=== PATIENT | female | born 1965 ===

== ENCOUNTER 2017-12-03 09:45 | Outpatient (RCR) | payer BC, SELFPAY ==
--- NOTE | 2017-11-10 15:53 | PT.OIE ---
Current Diagnoses Bilateral primary osteoarthritis of hip (11/09/17) Pain in right hip (11/09/17) Pain in left hip (11/09/17) Muscle weakness (generalized) (11/09/17) Trochanteric bursitis, right hip (11/09/17) Trochanteric bursitis, left hip (11/09/17) Other symptoms and signs involving the musculoskeletal system (11/09/17) Past Medical History (Last Updated 11/10/17 @ 15:45 by Krystal Cobb, PT) Melanoma (Acute) Provider Visit Care Team Role Provider Type Sandra Avila MD Family Provider Non-Staff Primary Care Provider Specialty: Medical Address: [address] [place] [address], [place], [address]: [address] PA-C Attending Provider Non-Staff Specialty: Medical Address: [address] [place] [address], [phone] Email: Physical Therapy Initial Evaluation PT-OP-A Visit Information Start: 11/09/17 13:29 Freq: Status: Active Protocol: Document 11/09/17 13:33 LRN (Rec: 11/09/17 13:52 LRN [id number]) Out-Patient Physical Therapy Visit Information Visit Information Visit Type Initial Evaluation Visit Note 1/? Visit Start Time 13:33 Visit Stop Time 14:30 Total Visit Minutes 57 Visit Number 1 Number of INSTRUCTOR ROBOTICS Visits 0 Evaluation Information Evaluation Date 11/09/17 PT-OP-B Current Condition Start: 11/09/17 13:29 Freq: Status: Active Protocol: Document 11/09/17 13:33 LRN (Rec: 11/09/17 13:52 LRN [id number]) Current Condition History of Current Condition Onset Date 4 yrs ago with start of cancer treatments Current Complaints Fear of recurrence of bilateral hip pain. History of Current Condition Pt reports after being diagnosed with Metastatic Melanoma, Stage IV cancer she underwent treatments causing her to have pain in many joints. Her most recent cancer treatment was radiation and targeted immunotherapy for brain cancer. She has had debilitating bilateral hip pain due to arthritis, bursitis and tendonitis, but October 23 received a cortisone injection in both her hips with immediate positive effects. She states after the injections, by the time she got home she was able to move almost normally. She is now doing all she wants to do. She can now sleep, roll over, get in/out of car, get up from chair, swim & exercise in a gym without being limited by pain. Her goal is to improve strength and flexibility, and to learn what she can do to avoid future onsets of hip pain. Prior Treatments and Tests Cortisone injection in bilateral hips on October 23. MRI 10/07/17. 3 yrs ago did PT due to back pain and knee pain. Future Testing and Treatments Planned Next orthopedic visit is . Treatment Goals Patient/Caregiver Goals Pt goal is that she wants to know what she is supposed to do to keep her strong and flexible without irritating her hip again. She wants to maximize what she is supposed to be doing. Prior Functional Status Baseline Function- ADL's Modified Independent Baseline Function- Mobility Independent Baseline Function- Gait No asst device needed. Baseline Function- Recreation/Hobbies Was exercising with personal insurance advisor. Baseline Function- Other Prior to cortisone injections: Limited trips on stairs. Walked but not fast and far. Hesitant stepping due to loss of balance. Difficulty getting in/out of car, standing, shuffled around. Current Functional Impairments (Reported) Functional Limitations- Mobility/Gait Walking in sand/gravel/nicole uneven ground. 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 Cancer history, has had steroid therapy with last session February 2017. 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 PT-OP-C Subjective Start: 11/09/17 13:29 Freq: Status: Active Protocol: Document 11/09/17 13:33 LRN (Rec: 11/09/17 13:52 LRN [id number]) OP-PT Subjective Patient Comments Patient Comments Tendency to sit too long. Wants to learn what to do to prevent recurrance of hip pain . Patient Questionnaires Lower Extremity Functional Scale LEFS Score 60 LEFS Impairment 20 to 39% Impaired (Score 48- 62) OP-PT Pain Assessment Location Lower Posterior Back Pain Location Details L5, Upper Sacral Bilateral Lateral Knee Pain Location Details Lateral knee joints Intensity 1 Scale Used Numeric (1 - 10) Bilateral Lateral Hip Pain Location Details Greater trochanters to proximal lateral thigh, outer 1/3 of groin Intensity 12 Scale Used Numeric (1 - 10) Description Tender Frequency Intermittent Pain Alleviating Factors Cold Other Pain Alleviating Factors Hydrocortisone Comments Pain Comments Not really painful PT-OP-D Balance Start: 11/09/17 13:29 Freq: Status: Active Protocol: Document 11/09/17 13:33 LRN (Rec: 11/09/17 17:39 LRN [id number]) Balance Tests Single Limb Standing Single Limb- Right 39 seconds Single Limb- Left 49 seconds PT-OP-G Mobility & Gait Start: 11/09/17 13:29 Freq: Status: Active Protocol: Document 11/09/17 13:33 LRN (Rec: 11/09/17 17:39 LRN [id number]) OP Gait Assessment Gait Deviations General Gait Pattern Within Normal Limits Stair Climbing Evaluation Evaluation Level of Assist On Stairs Independent Technique/Endurance Stair Climbing Direction Descend Stair Climbing Technique Step to Step PT-OP-H Neuro Start: 11/09/17 13:29 Freq: Status: Active Protocol: Document 11/09/17 13:33 LRN (Rec: 11/09/17 17:39 LRN [id number]) Deep Tendon Reflex & Clonus Assessment Deep Tendon Reflex Right Achilles Deep Tendon Reflex 2+ Normal Left Achilles Deep Tendon Reflex 2+ Normal Right Patellar Deep Tendon Reflex 3+ Normal But Brisk Left Patellar Deep Tendon Reflex 3+ Normal But Brisk PT-OP-J Posture/Palpation/Skin Start: 11/09/17 13:29 Freq: Status: Active Protocol: Document 11/09/17 13:33 LRN (Rec: 11/09/17 17:39 LRN [id number]) Posture Evaluation Position Standing Evaluation View Lateral L-Spine Posture Increased Lordosis Pelvis Posture Anteriorly Tilted Knee Posture (L) Genu Valgus (R) Genu Valgus Ankle/Foot Posture (L) Supinated (R) Supinated Palpation Assessment Location Three Palpation Location Lumbar Spine Palpation Findings Tenderness Palpation Details Spinous Process of L5. Bilateral Transverse Processes of L1, L3, L5 Two Palpation Location IT Band Bilaterally Palpation Findings Tenderness One Palpation Location Bilateral Greater trochanters Palpation Findings Tenderness PT-OP-K Range of Motion Start: 11/09/17 13:29 Freq: Status: Active Protocol: Document 11/09/17 13:33 LRN (Rec: 11/09/17 17:39 LRN [id number]) Hip Goniometric Range of Motion Hip ROM Limitations Hip ROM Limitations Soft Tissue Tightness Muscle Weakness Comments Hip Extension Bilaterally PT-OP-M Strength Start: 11/09/17 13:29 Freq: Status: Active Protocol: Document 11/09/17 13:33 LRN (Rec: 11/09/17 17:42 LRN [id number]) Hip Strength Hip Manual Muscle Testing Right Extension (S1) 4 Good Comments All other muscle groups were 5 /5 Left Extension (S1) 4 Good External Rotation 4+ Good+ Comments All other muscle groups were 5 /5 Knee Strength Knee Manual Muscle Testing Right Reason Not Measured WFL Left Reason Not Measured WFL Ankle/Foot Strength Ankle and Foot Manual Muscle Testing Right Reason Not Measured WFL Left Reason Not Measured WFL PT-OP-Q Treatments Start: 11/09/17 13:29 Freq: Status: Active Protocol: Document 11/09/17 13:33 LRN (Rec: 11/09/17 17:39 LRN [id number]) Therapeutic Exercises Standing Exercises 1 Standing Exercise Name Hip Flexor stretch Side bilateral Equipment Used Chair, step, Pelvic Tilt Reps/Minutes 12' Comments Extra time taken for training and repetitive teaching. Self-Care/Home Management Treatment Education Patient Education Home Exercise Program Activities Self-Care/Home Management Activities HEP: I/S pt in postural correction of anteriorly tilted Pelvis, Stretch to Hip flexors by using Gluteal muscles. Pt's current HEP discussed & reviewed. PT-OP-T Assessment and Plan Start: 11/09/17 13:29 Freq: Status: Active Protocol: Document 11/09/17 13:33 LRN (Rec: 11/09/17 13:52 LRN [id number]) Physical Therapy Assessment Evaluation Complexity Number of Personal Factors/Comorbidities 1-2 Number of Body Systems Impaired 1-2 Clinical Presentation at Evaluation Evolving Impairments Impairments Balance Functional Activities Posture ROM Strength Other Impairments Possible ongoing cancer treatments Goals Three Impairment Decreased bilateral hip extension ROM and strength Purse Seining Hand Goal (LTG) Pt will demonstrate good hip ext mobility and normal strength, bilaterally. LTG Duration 12/11/17. Two Impairment Lack of awareness/education in HEP to prevent onset of bilateral hip pain. Fdc Goal (LTG) Pt will be educated and independent in a HEP to maximize strength and mobility of the LE's and to prevent onset of bilateral hip pain. LTG Duration 12/07/17. One Impairment Decreased posture Short Term Goal (STG) Pt educated in proper posturing with ability to correct with minimal cuing. STG Duration 11/16/17 Assessment Summary Assessment Pt presents with no significant complaints of bilateral hip pain after receiving cortisone injections 10/23/17. She does have palpable areas of discomfort at the greater trochanters, IT bands, low back region and L 5 spinous process and L1, L3, L5 transverse processes. She has excessive lumbar lordosis with decreased hip extension mobility and strength; therefore limitations in core stabilization. The pt appears to have good hip mobility except with hip extension. The pt has remained quite active during her cancer treatments and could benefit from skilled physical therapy for pt education and training in self care to address her area of deficits and to learn how to prevent future onset of bilateral hip pain that is not related to onset from her cancer care treatments. Physical therapy should start 2x/week for training onto a self care program, then 1x/ week to progress and modify as needed for 2-3 more weeks. Physical Therapy Plan Frequency and Duration Frequency of Treatment 2x/Week Plan of Care Start Date 11/09/17 Plan of Care End Date 12/11/17 Therapeutic Interventions Therapeutic Interventions Balance Training Gait Training Home Exercise Program Joint Mobilizations Manual Therapy Neuromuscular Re-education Patient/Caregiver Education Self-Care/Home Management Soft Tissue Mobilization Therapeutic Activities Therapeutic Exercises Modalities Cold Pack/Ice Massage Next Visit Focus/Plan Next Note Type Treatment Note Next Visit Plan Place pt on independent HEP in 2-3 visits, then monitor and progress as needed 1x/week for 3 weeks until pt is independent on a program to minimize onset of bilateral hip pain.
--- NOTE | 2017-11-10 15:56 | PT.OPPOC ---
Current Diagnoses Bilateral primary osteoarthritis of hip (11/09/17) Pain in right hip (11/09/17) Pain in left hip (11/09/17) Muscle weakness (generalized) (11/09/17) Trochanteric bursitis, right hip (11/09/17) Trochanteric bursitis, left hip (11/09/17) Other symptoms and signs involving the musculoskeletal system (11/09/17) Provider Visit Care Team Role Provider Type Sandra Avila MD Family Provider Non-Staff Primary Care Provider Specialty: Medical Address: [address] [place] [address], [phone]: [address] PA-C Attending Provider Non-Staff Specialty: Medical Address: [address] [place] [address], [phone] Email: Plan Of Care PT-OP-T Assessment and Plan Start: 11/09/17 13:29 Freq: Status: Active Protocol: Document 11/09/17 13:33 LRN (Rec: 11/09/17 13:52 LRN [id number]) Physical Therapy Assessment Evaluation Complexity Number of Personal Factors/Comorbidities 1-2 Number of Body Systems Impaired 1-2 Clinical Presentation at Evaluation Evolving Impairments Impairments Balance Functional Activities Posture ROM Strength Other Impairments Possible ongoing cancer treatments Goals Three Impairment Decreased bilateral hip extension ROM and strength Supply Chain Procurement Manager Goal (LTG) Pt will demonstrate good hip ext mobility and normal strength, bilaterally. LTG Duration 12/11/17. Two Impairment Lack of awareness/education in HEP to prevent onset of bilateral hip pain. Supply Chain Procurement Manager Goal (LTG) Pt will be educated and independent in a HEP to maximize strength and mobility of the LE's and to prevent onset of bilateral hip pain. LTG Duration 12/07/17. One Impairment Decreased posture Short Term Goal (STG) Pt educated in proper posturing with ability to correct with minimal cuing. STG Duration 11/16/17 Assessment Summary Assessment Pt presents with no significant complaints of bilateral hip pain after receiving cortisone injections 10/23/17. She does have palpable areas of discomfort at the greater trochanters, IT bands, low back region and L 5 spinous process and L1, L3, L5 transverse processes. She has excessive lumbar lordosis with decreased hip extension mobility and strength; therefore limitations in core stabilization. The pt appears to have good hip mobility except with hip extension. The pt has remained quite active during her cancer treatments and could benefit from skilled physical therapy for pt education and training in self care to address her area of deficits and to learn how to prevent future onset of bilateral hip pain that is not related to onset from her cancer care treatments. Physical therapy should start 2x/week for training onto a self care program, then 1x/ week to progress and modify as needed for 2-3 more weeks. Physical Therapy Plan Frequency and Duration Frequency of Treatment 2x/Week Plan of Care Start Date 11/09/17 Plan of Care End Date 12/11/17 Therapeutic Interventions Therapeutic Interventions Balance Training Gait Training Home Exercise Program Joint Mobilizations Manual Therapy Neuromuscular Re-education Patient/Caregiver Education Self-Care/Home Management Soft Tissue Mobilization Therapeutic Activities Therapeutic Exercises Modalities Cold Pack/Ice Massage Next Visit Focus/Plan Next Note Type Treatment Note Next Visit Plan Place pt on independent HEP in 2-3 visits, then monitor and progress as needed 1x/week for 3 weeks until pt is independent on a program to minimize onset of bilateral hip pain. Plan of Care Dates Plan of Care Start Date 11/09/17 Plan of Care End Date 12/11/17 Please Sign and Return: I have reviewed this Plan of Care and certify that the skilled therapy services above are required to meet the patient?s needs. Physician Signature Date Printed Name and Credentials Clinical Instructor Signature Printed Name and Credentials
--- NOTE | 2017-11-12 16:18 | PT.OTN ---
Current Diagnoses Bilateral primary osteoarthritis of hip (11/12/17) Pain in right hip (11/12/17) Pain in left hip (11/12/17) Trochanteric bursitis, right hip (11/12/17) Trochanteric bursitis, left hip (11/12/17) Physical Therapy Treatment Note PT-OP-A Visit Information Start: 11/09/17 13:29 Freq: Status: Active Protocol: Document 11/12/17 09:07 LRN (Rec: 11/12/17 09:10 LRN [id number]) Out-Patient Physical Therapy Visit Information Visit Information Visit Type Treatment Note Visit Note 06/28-5 Visit Start Time 09:07 Visit Stop Time 09:59 Total Visit Minutes 52 Visit Number 2 Number of CONFIGURATION MANAGEMENT ADVISOR Visits 0 Evaluation Information Evaluation Date 11/09/17 PT-OP-B Current Condition Start: 11/09/17 13:29 Freq: Status: Active Protocol: Document 11/09/17 13:33 LRN (Rec: 11/09/17 13:52 LRN [id number]) Current Condition History of Current Condition Onset Date 4 yrs ago with start of cancer treatments Current Complaints Fear of recurrence of bilateral hip pain. History of Current Condition Pt reports after being diagnosed with Metastatic Melanoma, Stage IV cancer she underwent treatments causing her to have pain in many joints. Her most recent cancer treatment was radiation and targeted immunotherapy for brain cancer. She has had debilitating bilateral hip pain due to arthritis, bursitis and tendonitis, but October 23 received a cortisone injection in both her hips with immediate positive effects. She states after the injections, by the time she got home she was able to move almost normally. She is now doing all she wants to do. She can now sleep, roll over, get in/out of car, get up from chair, swim & exercise in a gym without being limited by pain. Her goal is to improve strength and flexibility, and to learn what she can do to avoid future onsets of hip pain. Prior Treatments and Tests Cortisone injection in bilateral hips on October 23. MRI 10/07/17. 3 yrs ago did PT due to back pain and knee pain. Future Testing and Treatments Planned Next orthopedic visit is . Treatment Goals Patient/Caregiver Goals Pt goal is that she wants to know what she is supposed to do to keep her strong and flexible without irritating her hip again. She wants to maximize what she is supposed to be doing. Prior Functional Status Baseline Function- ADL's Modified Independent Baseline Function- Mobility Independent Baseline Function- Gait No asst device needed. Baseline Function- Recreation/Hobbies Was exercising with household personal assistant. Baseline Function- Other Prior to cortisone injections: Limited trips on stairs. Walked but not fast and far. Hesitant stepping due to loss of balance. Difficulty getting in/out of car, standing, shuffled around. Current Functional Impairments (Reported) Functional Limitations- Mobility/Gait Walking in sand/gravel/nicole uneven ground. 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 Cancer history, has had steroid therapy with last session February 2017. 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 PT-OP-C Subjective Start: 11/09/17 13:29 Freq: Status: Active Protocol: Document 11/12/17 09:07 LRN (Rec: 11/12/17 09:10 LRN [id number]) OP-PT Subjective Patient Comments Patient Comments Been working on posture, can tell hip flexors are tight. Swam yesterday. Patient Questionnaires Lower Extremity Functional Scale LEFS Score 60 LEFS Impairment 20 to 39% Impaired (Score 48- 62) PT-OP-D Balance Start: 11/09/17 13:29 Freq: Status: Active Protocol: Document 11/09/17 13:33 LRN (Rec: 11/09/17 17:39 LRN [id number]) Balance Tests Single Limb Standing Single Limb- Right 39 seconds Single Limb- Left 49 seconds PT-OP-G Mobility & Gait Start: 11/09/17 13:29 Freq: Status: Active Protocol: Document 11/09/17 13:33 LRN (Rec: 11/09/17 17:39 LRN [id number]) OP Gait Assessment Gait Deviations General Gait Pattern Within Normal Limits Stair Climbing Evaluation Evaluation Level of Assist On Stairs Independent Technique/Endurance Stair Climbing Direction Descend Stair Climbing Technique Step to Step PT-OP-H Neuro Start: 11/09/17 13:29 Freq: Status: Active Protocol: Document 11/09/17 13:33 LRN (Rec: 11/09/17 17:39 LRN [id number]) Deep Tendon Reflex & Clonus Assessment Deep Tendon Reflex Right Achilles Deep Tendon Reflex 2+ Normal Left Achilles Deep Tendon Reflex 2+ Normal Right Patellar Deep Tendon Reflex 3+ Normal But Brisk Left Patellar Deep Tendon Reflex 3+ Normal But Brisk PT-OP-J Posture/Palpation/Skin Start: 11/09/17 13:29 Freq: Status: Active Protocol: Document 11/09/17 13:33 LRN (Rec: 11/09/17 17:39 LRN [id number]) Posture Evaluation Position Standing Evaluation View Lateral L-Spine Posture Increased Lordosis Pelvis Posture Anteriorly Tilted Knee Posture (L) Genu Valgus (R) Genu Valgus Ankle/Foot Posture (L) Supinated (R) Supinated Palpation Assessment Location Three Palpation Location Lumbar Spine Palpation Findings Tenderness Palpation Details Spinous Process of L5. Bilateral Transverse Processes of L1, L3, L5 Two Palpation Location IT Band Bilaterally Palpation Findings Tenderness One Palpation Location Bilateral Greater trochanters Palpation Findings Tenderness PT-OP-K Range of Motion Start: 11/09/17 13:29 Freq: Status: Active Protocol: Document 11/09/17 13:33 LRN (Rec: 11/09/17 17:39 LRN [id number]) Hip Goniometric Range of Motion Hip ROM Limitations Hip ROM Limitations Soft Tissue Tightness Muscle Weakness Comments Hip Extension Bilaterally PT-OP-M Strength Start: 11/09/17 13:29 Freq: Status: Active Protocol: Document 11/09/17 13:33 LRN (Rec: 11/09/17 17:42 LRN [id number]) Hip Strength Hip Manual Muscle Testing Right Extension (S1) 4 Good Comments All other muscle groups were 5 /5 Left Extension (S1) 4 Good External Rotation 4+ Good+ Comments All other muscle groups were 5 /5 Knee Strength Knee Manual Muscle Testing Right Reason Not Measured WFL Left Reason Not Measured WFL Ankle/Foot Strength Ankle and Foot Manual Muscle Testing Right Reason Not Measured WFL Left Reason Not Measured WFL PT-OP-Q Treatments Start: 11/09/17 13:29 Freq: Status: Active Protocol: Document 11/12/17 09:07 LRN (Rec: 11/12/17 09:22 LRN [id number]) Cardio Equipment Treadmill Duration (Minutes) 8 Speed 1.6 Therapeutic Exercises Standing Exercises 2 Standing Exercise Name Standing hip ext Side bilateral Reps/Minutes 10x in each positions (stand x2, kneel) Comments Extra time taken for proper positioning 1 Standing Exercise Name Hip Flexor stretch Side bilateral Equipment Used Chair, step, Reps/Minutes 2' each Comments Extra time taken for training and repetitive teaching. Other Exercises 1 Other Exercise Name Kneeling hip flex stretch Side bilateral Reps/Minutes 2' Comments Extra time taken for training of proper postioning Self-Care/Home Management Treatment Education Patient Education Posture Other Education Postural education Activities Self-Care/Home Management Activities Reviewed and trained pt in proper posturing in standing and with ex's. PT-OP-R Modalities Start: 11/09/17 13:29 Freq: Status: Active Protocol: Document 11/12/17 09:07 LRN (Rec: 11/12/17 09:22 LRN [id number]) Hot Pack/Cold Pack Treatment Cold Pack Location Anterior hips Patient Position Supine Treatment Duration (minutes) 10 PT-OP-T Assessment and Plan Start: 11/09/17 13:29 Freq: Status: Active Protocol: Document 11/12/17 09:07 LRN (Rec: 11/12/17 09:10 LRN [id number]) Physical Therapy Assessment Impairments Impairments Balance Functional Activities Posture ROM Strength Other Impairments Possible ongoing cancer treatments Goals Three Impairment Decreased bilateral hip extension ROM and strength Halfway Goal (LTG) Pt will demonstrate good hip ext mobility and normal strength, bilaterally. LTG Duration 12/11/17. Two Impairment Lack of awareness/education in HEP to prevent onset of bilateral hip pain. Clay Artisan Goal (LTG) Pt will be educated and independent in a HEP to maximize strength and mobility of the LE's and to prevent onset of bilateral hip pain. LTG Duration 12/07/17. One Impairment Decreased posture Short Term Goal (STG) Pt educated in proper posturing with ability to correct with minimal cuing. STG Duration 11/16/17 Assessment Summary Assessment Pt required extensive training for proper standing posture and proper posturing during ex 's. She has poor postural awareness with ex's. due to long history of excessive lumbar lordosis and tight hip flexors. She is not able to reduce lumbar lordosis without flexing her knees. Physical Therapy Plan Frequency and Duration Frequency of Treatment 2x/Week Plan of Care Start Date 11/09/17 Plan of Care End Date 12/11/17 Next Visit Focus/Plan Next Note Type Treatment Note Next Visit Plan Place pt on independent HEP in 1-2 visits, then monitor and progress as needed 1x/week for 3 weeks until pt is independent on a program to minimize onset of bilateral hip pain.
--- NOTE | 2017-11-19 16:06 | PT.OTN ---
Current Diagnoses Bilateral primary osteoarthritis of hip (11/19/17) Pain in right hip (11/19/17) Pain in left hip (11/19/17) Trochanteric bursitis, right hip (11/19/17) Trochanteric bursitis, left hip (11/19/17) Physical Therapy Treatment Note PT-OP-A Visit Information Start: 11/09/17 13:29 Freq: Status: Active Protocol: Document 11/19/17 10:35 LRN (Rec: 11/19/17 10:43 LRN [id number]) Out-Patient Physical Therapy Visit Information Visit Information Visit Type Treatment Note Visit Note 06/28-5 Visit Start Time 10:35 Visit Stop Time 11:25 Total Visit Minutes 50 Visit Number 3 Number of JIG AND FIXTURE BUILDER APPRENTICE Visits 0 Evaluation Information Evaluation Date 11/09/17 PT-OP-B Current Condition Start: 11/09/17 13:29 Freq: Status: Active Protocol: Document 11/09/17 13:33 LRN (Rec: 11/09/17 13:52 LRN [id number]) Current Condition History of Current Condition Onset Date 4 yrs ago with start of cancer treatments Current Complaints Fear of recurrance of bilateral hip pain. History of Current Condition Pt reports after being diagnosed with Metastatic Melanoma, Stage IV cancer she underwent treatments causing her to have pain in many joints. Her most recent cancer treatment was radiation and targeted immunotherapy for brain cancer. She has had debilitating bilateral hip pain due to arthritis, bursitis and tendonitis, but October 23 received a cortisone injection in both her hips with immediate positive effects. She states after the injections, by the time she got home she was able to move almost normally. She is now doing all she wants to do. She can now sleep, roll over, get in/out of car, get up from chair, swim & exercise in a gym without being limited by pain. Her goal is to improve strength and flexibility, and to learn what she can do to avoid future onsets of hip pain. Prior Treatments and Tests Cortisone injection in bilateral hips on October 23. MRI 10/07/17. 3 yrs ago did PT due to back pain and knee pain. Future Testing and Treatments Planned Next orthopedic visit is . Treatment Goals Patient/Caregiver Goals Pt goal is that she wants to know what she is supposed to do to keep her strong and flexible without irritating her hip again. She wants to maximize what she is supposed to be doing. Prior Functional Status Baseline Function- ADL's Modified Independent Baseline Function- Mobility Independent Baseline Function- Gait No asst device needed. Baseline Function- Recreation/Hobbies Was exercising with personal development coach. Baseline Function- Other Prior to cortisone injections: Limited trips on stairs. Walked but not fast and far. Hesitant stepping due to loss of balance. Difficulty getting in/out of car, standing, shuffled around. Current Functional Impairments (Reported) Functional Limitations- Mobility/Gait Walking in sand/gravel/nicole uneven ground. 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 Cancer history, has had steroid therapy with last session February 2017. 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 PT-OP-C Subjective Start: 11/09/17 13:29 Freq: Status: Active Protocol: Document 11/19/17 10:35 LRN (Rec: 11/19/17 10:49 LRN [id number]) OP-PT Subjective Patient Comments Patient Comments Didn't do too well Only did stretches. Swam today. PT-OP-D Balance Start: 11/09/17 13:29 Freq: Status: Active Protocol: Document 11/09/17 13:33 LRN (Rec: 11/09/17 17:39 LRN [id number]) Balance Tests Single Limb Standing Single Limb- Right 39 seconds Single Limb- Left 49 seconds PT-OP-G Mobility & Gait Start: 11/09/17 13:29 Freq: Status: Active Protocol: Document 11/09/17 13:33 LRN (Rec: 11/09/17 17:39 LRN [id number]) OP Gait Assessment Gait Deviations General Gait Pattern Within Normal Limits Stair Climbing Evaluation Evaluation Level of Assist On Stairs Independent Technique/Endurance Stair Climbing Direction Descend Stair Climbing Technique Step to Step PT-OP-H Neuro Start: 11/09/17 13:29 Freq: Status: Active Protocol: Document 11/09/17 13:33 LRN (Rec: 11/09/17 17:39 LRN [id number]) Deep Tendon Reflex & Clonus Assessment Deep Tendon Reflex Right Achilles Deep Tendon Reflex 2+ Normal Left Achilles Deep Tendon Reflex 2+ Normal Right Patellar Deep Tendon Reflex 3+ Normal But Brisk Left Patellar Deep Tendon Reflex 3+ Normal But Brisk PT-OP-J Posture/Palpation/Skin Start: 11/09/17 13:29 Freq: Status: Active Protocol: Document 11/09/17 13:33 LRN (Rec: 11/09/17 17:39 LRN [id number]) Posture Evaluation Position Standing Evaluation View Lateral L-Spine Posture Increased Lordosis Pelvis Posture Anteriorly Tilted Knee Posture (L) Genu Valgus (R) Genu Valgus Ankle/Foot Posture (L) Supinated (R) Supinated Palpation Assessment Location Three Palpation Location Lumbar Spine Palpation Findings Tenderness Palpation Details Spinous Process of L5. Bilateral Transverse Processes of L1, L3, L5 Two Palpation Location IT Band Bilaterally Palpation Findings Tenderness One Palpation Location Bilateral Greater trochanters Palpation Findings Tenderness PT-OP-K Range of Motion Start: 11/09/17 13:29 Freq: Status: Active Protocol: Document 11/09/17 13:33 LRN (Rec: 11/09/17 17:39 LRN [id number]) Hip Goniometric Range of Motion Hip ROM Limitations Hip ROM Limitations Soft Tissue Tightness Muscle Weakness Comments Hip Extension Bilaterally PT-OP-M Strength Start: 11/09/17 13:29 Freq: Status: Active Protocol: Document 11/09/17 13:33 LRN (Rec: 11/09/17 17:42 LRN [id number]) Hip Strength Hip Manual Muscle Testing Right Extension (S1) 4 Good Comments All other muscle groups were 5 /5 Left Extension (S1) 4 Good External Rotation 4+ Good+ Comments All other muscle groups were 5 /5 Knee Strength Knee Manual Muscle Testing Right Reason Not Measured WFL Left Reason Not Measured WFL Ankle/Foot Strength Ankle and Foot Manual Muscle Testing Right Reason Not Measured WFL Left Reason Not Measured WFL PT-OP-Q Treatments Start: 11/09/17 13:29 Freq: Status: Active Protocol: Document 11/19/17 10:35 LRN (Rec: 11/19/17 10:43 LRN [id number]) Cardio Equipment Treadmill Duration (Minutes) 8 Speed 2.0 Therapeutic Exercises Standing Exercises 3 Standing Exercise Name Standing IT/TFL stretch Side left Reps/Minutes 3' Comments L leg in front of R 2 Standing Exercise Name Standing hip ext Side bilateral Reps/Minutes 10x in each positions (stand x2, kneel) Comments Extra time taken for proper positioning 1 Standing Exercise Name Hip Flexor stretch Side bilateral Equipment Used Chair, step, Reps/Minutes 2' each Comments Extra time taken for training and repetitive teaching. Other Exercises 2 Other Exercise Name Long sit TFL stretch Side bilateral Reps/Minutes 1' each Comments No significant stretch felt Manual Therapy Treatment Soft Tissue Mobilization 1 Body Location IT Band Bilaterally Mobilization Type Instrument Assisted Sustained Pressure Intensity/Depth Moderate Body Position Long Sit Self-Care/Home Management Treatment Education Patient Education Home Exercise Program Activities Self-Care/Home Management Activities Issued and reviewed IT/TFL stretch in standing x 2. PT-OP-R Modalities Start: 11/09/17 13:29 Freq: Status: Active Protocol: Document 11/19/17 10:35 LRN (Rec: 11/19/17 10:43 LRN [id number]) Hot Pack/Cold Pack Treatment Cold Pack Location Anterior/lateral hips Patient Position Supine Treatment Duration (minutes) 10 PT-OP-T Assessment and Plan Start: 11/09/17 13:29 Freq: Status: Active Protocol: Document 11/19/17 10:35 LRN (Rec: 11/19/17 10:43 LRN [id number]) Physical Therapy Assessment Impairments Impairments Balance Functional Activities Posture ROM Strength Other Impairments Possible ongoing cancer treatments Goals Three Impairment Decreased bilateral hip extension ROM and strength Motivational Speaker Goal (LTG) Pt will demonstrate good hip ext mobility and normal strength, bilaterally. LTG Duration 12/11/17. Two Impairment Lack of awareness/education in HEP to prevent onset of bilateral hip pain. Halfway Goal (LTG) Pt will be educated and independent in a HEP to maximize strength and mobility of the LE's and to prevent onset of bilateral hip pain. LTG Duration 12/07/17. One Impairment Decreased posture Short Term Goal (STG) Pt educated in proper posturing with ability to correct with minimal cuing. STG Duration 11/16/17 Goal Partially met, pt educated. Assessment Summary Assessment Pt needs hip ext strengthening , self-correction of posture in standing (self awareness is present) Physical Therapy Plan Frequency and Duration Frequency of Treatment 2x/Week Duration of Treatment 3 weeks Plan of Care Start Date 11/09/17 Plan of Care End Date 12/11/17 Therapeutic Interventions Therapeutic Interventions Balance Training Gait Training Home Exercise Program Joint Mobilizations Manual Therapy Neuromuscular Re-education Patient/Caregiver Education Self-Care/Home Management Soft Tissue Mobilization Therapeutic Activities Therapeutic Exercises Modalities Cold Pack/Ice Massage Next Visit Focus/Plan Next Note Type Treatment Note Next Visit Plan Place pt on independent HEP in 1-2 visits, then monitor and progress as needed 1x/week for 2 weeks until pt is independent on a program to minimize onset of bilateral hip pain.
--- NOTE | 2017-12-03 14:19 | PT.OTN ---
Current Diagnoses Bilateral primary osteoarthritis of hip (12/03/17) Pain in right hip (12/03/17) Pain in left hip (12/03/17) Trochanteric bursitis, right hip (12/03/17) Trochanteric bursitis, left hip (12/03/17) Physical Therapy Treatment Note PT-OP-A Visit Information Start: 11/09/17 13:29 Freq: Status: Active Protocol: Document 12/03/17 09:52 LRN (Rec: 12/03/17 10:27 LRN [id number]) Out-Patient Physical Therapy Visit Information Visit Information Visit Type Treatment Note Visit Note 4/4-5 Visit Start Time 09:52 Visit Stop Time 10:42 Total Visit Minutes 50 Visit Number 4 Number of CHARGE RN Visits 0 Evaluation Information Evaluation Date 11/09/17 PT-OP-B Current Condition Start: 11/09/17 13:29 Freq: Status: Active Protocol: Document 11/09/17 13:33 LRN (Rec: 11/09/17 13:52 LRN [id number]) Current Condition History of Current Condition Onset Date 4 yrs ago with start of cancer treatments Current Complaints Fear of recurrence of bilateral hip pain. History of Current Condition Pt reports after being diagnosed with Metastatic Melanoma, Stage IV cancer she underwent treatments causing her to have pain in many joints. Her most recent cancer treatment was radiation and targeted immunotherapy for brain cancer. She has had debilitating bilateral hip pain due to arthritis, bursitis and tendonitis, but October 23 received a cortisone injection in both her hips with immediate positive effects. She states after the injections, by the time she got home she was able to move almost normally. She is now doing all she wants to do. She can now sleep, roll over, get in/out of car, get up from chair, swim & exercise in a gym without being limited by pain. Her goal is to improve strength and flexibility, and to learn what she can do to avoid future onsets of hip pain. Prior Treatments and Tests Cortisone injection in bilateral hips on October 23. MRI 10/07/17. 3 yrs ago did PT due to back pain and knee pain. Future Testing and Treatments Planned Next orthopedic visit is . Treatment Goals Patient/Caregiver Goals Pt goal is that she wants to know what she is supposed to do to keep her strong and flexible without irritating her hip again. She wants to maximize what she is supposed to be doing. Prior Functional Status Baseline Function- ADL's Modified Independent Baseline Function- Mobility Independent Baseline Function- Gait No asst device needed. Baseline Function- Recreation/Hobbies Was exercising with process trainer. Baseline Function- Other Prior to cortisone injections: Limited trips on stairs. Walked but not fast and far. Hesitant stepping due to loss of balance. Difficulty getting in/out of car, standing, shuffled around. Current Functional Impairments (Reported) Functional Limitations- Mobility/Gait Walking in sand/gravel/nicole uneven ground. 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 Cancer history, has had steroid therapy with last session February 2017. 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 PT-OP-C Subjective Start: 11/09/17 13:29 Freq: Status: Active Protocol: Document 12/03/17 09:52 LRN (Rec: 12/03/17 10:27 LRN [id number]) OP-PT Subjective Patient Comments Patient Comments Feels like the hip injection isn't going to last, can start feeling the hip again. Still sleeping okay. Patient Questionnaires Lower Extremity Functional Scale LEFS Score 62 LEFS Impairment 20 to 39% Impaired (Score 48- 62) OP-PT Pain Assessment Location Lower Posterior Back Pain Location Details L5, Upper Sacral Intensity 0 Bilateral Lateral Knee Pain Location Details Lateral knee joints Intensity 0 Scale Used Numeric (1 - 10) Bilateral Lateral Hip Pain Location Details Greater trochanters to proximal lateral thigh, outer 1/3 of groin Intensity 1 Scale Used Numeric (1 - 10) Description Tender Frequency Intermittent Pain Alleviating Factors Cold PT-OP-D Balance Start: 11/09/17 13:29 Freq: Status: Active Protocol: Document 11/09/17 13:33 LRN (Rec: 11/09/17 17:39 LRN [id number]) Balance Tests Single Limb Standing Single Limb- Right 39 seconds Single Limb- Left 49 seconds PT-OP-G Mobility & Gait Start: 11/09/17 13:29 Freq: Status: Active Protocol: Document 11/09/17 13:33 LRN (Rec: 11/09/17 17:39 LRN [id number]) OP Gait Assessment Gait Deviations General Gait Pattern Within Normal Limits Stair Climbing Evaluation Evaluation Level of Assist On Stairs Independent Technique/Endurance Stair Climbing Direction Descend Stair Climbing Technique Step to Step PT-OP-H Neuro Start: 11/09/17 13:29 Freq: Status: Active Protocol: Document 11/09/17 13:33 LRN (Rec: 11/09/17 17:39 LRN [id number]) Deep Tendon Reflex & Clonus Assessment Deep Tendon Reflex Right Achilles Deep Tendon Reflex 2+ Normal Left Achilles Deep Tendon Reflex 2+ Normal Right Patellar Deep Tendon Reflex 3+ Normal But Brisk Left Patellar Deep Tendon Reflex 3+ Normal But Brisk PT-OP-J Posture/Palpation/Skin Start: 11/09/17 13:29 Freq: Status: Active Protocol: Document 11/09/17 13:33 LRN (Rec: 11/09/17 17:39 LRN [id number]) Posture Evaluation Position Standing Evaluation View Lateral L-Spine Posture Increased Lordosis Pelvis Posture Anteriorly Tilted Knee Posture (L) Genu Valgus (R) Genu Valgus Ankle/Foot Posture (L) Supinated (R) Supinated Palpation Assessment Location Three Palpation Location Lumbar Spine Palpation Findings Tenderness Palpation Details Spinous Process of L5. Bilateral Transverse Processes of L1, L3, L5 Two Palpation Location IT Band Bilaterally Palpation Findings Tenderness One Palpation Location Bilateral Greater trochanters Palpation Findings Tenderness PT-OP-K Range of Motion Start: 11/09/17 13:29 Freq: Status: Active Protocol: Document 11/09/17 13:33 LRN (Rec: 11/09/17 17:39 LRN [id number]) Hip Goniometric Range of Motion Hip ROM Limitations Hip ROM Limitations Soft Tissue Tightness Muscle Weakness Comments Hip Extension Bilaterally PT-OP-M Strength Start: 11/09/17 13:29 Freq: Status: Active Protocol: Document 11/09/17 13:33 LRN (Rec: 11/09/17 17:42 LRN [id number]) Hip Strength Hip Manual Muscle Testing Right Extension (S1) 4 Good Comments All other muscle groups were 5 /5 Left Extension (S1) 4 Good External Rotation 4+ Good+ Comments All other muscle groups were 5 /5 Knee Strength Knee Manual Muscle Testing Right Reason Not Measured WFL Left Reason Not Measured WFL Ankle/Foot Strength Ankle and Foot Manual Muscle Testing Right Reason Not Measured WFL Left Reason Not Measured WFL PT-OP-Q Treatments Start: 11/09/17 13:29 Freq: Status: Active Protocol: Document 12/03/17 09:52 LRN (Rec: 12/03/17 10:27 LRN [id number]) Cardio Equipment Treadmill Duration (Minutes) 9 Speed 2.0 Therapeutic Exercises Supine Exercises 1 Supine Exercise Name PROM of Hips ER/IR Reps/Minutes 6' Prone Exercises 1 Prone Exercise Name Active hip extension Reps/Minutes 4' Standing Exercises 3 Standing Exercise Name Standing IT/TFL stretch Side left Reps/Minutes 3' Comments L leg in front of R 2 Standing Exercise Name Standing hip ext Side bilateral Reps/Minutes 10x in each positions (stand x2, kneel) Comments Extra time taken for proper positioning 1 Standing Exercise Name Hip Flexor stretch Side bilateral Equipment Used Chair, step, Reps/Minutes 2' each Comments Extra time taken for training and repetitive teaching. Self-Care/Home Management Treatment Education Patient Education Posture Other Education Postural review Activities Self-Care/Home Management Activities Issue and reviewed Hip AB strengthening supine > standing. PT-OP-R Modalities Start: 11/09/17 13:29 Freq: Status: Active Protocol: Document 12/03/17 09:52 LRN (Rec: 12/03/17 10:27 LRN [id number]) Hot Pack/Cold Pack Treatment Cold Pack Location Anterior/lateral hips Patient Position Supine Treatment Duration (minutes) 10 PT-OP-T Assessment and Plan Start: 11/09/17 13:29 Freq: Status: Active Protocol: Document 12/03/17 09:52 LRN (Rec: 12/03/17 10:27 LRN [id number]) Physical Therapy Assessment Impairments Impairments ROM Strength Other Impairments Possible ongoing cancer treatments Other Concerns Barriers to Rehabilitation Possible ongoing cancer treatments Goals Three Impairment Decreased bilateral hip extension ROM and strength Oven Tender Goal (LTG) Pt will demonstrate good hip ext mobility and normal strength, bilaterally. LTG Duration Goal Partially Met. Two Impairment Lack of awareness/education in HEP to prevent onset of bilateral hip pain. Oven Tender Goal (LTG) Pt will be educated and independent in a HEP to maximize strength and mobility of the LE's and to prevent onset of bilateral hip pain. LTG Duration Goal Met One Impairment Decreased posture Short Term Goal (STG) Pt educated in proper posturing with ability to correct with minimal cuing. STG Duration Goal Met Assessment Summary Assessment Pt shows good postural awareness and understanding of her HEP. She has not used coldpacks to manage pain onset ; therefore with use of ex and coldpacks the pt feels she is ready to proceed with her care on an independent HEP. The pt has hip mobility restrictions on the left (IR, ER) and R hip extension. She has decreased strength with hip extension (limited by back pain), and with L hip ER/IR. The pt has home ex's to address these areas (except held hip ext due to onset of back pain). Physical Therapy Plan Next Visit Focus/Plan Next Visit Plan DC to HEP.
== END 2018-04-23 13:16 ==
LOC: PHYS 09:45
PROVIDERS: Family Provider Family Medicine; PCP Family Medicine; Visit Provider Physician Assistant
DX: M25.551 Pain in right hip (principal); M25.552 Pain in left hip; M16.0 Bilateral primary osteoarthritis of hip; M70.61 Trochanteric bursitis, right hip; M70.62 Trochanteric bursitis, left hip
CPT/HCPCS: 97010; 97110; 97140; 97162; 97535

== ENCOUNTER → 2019-06-22 14:26 | Outpatient (CLI) | payer BC, SELFPAY ==
[2019-06-22 17:18] LABS: BUN Creatinine Ratio 28.3 (6-22); Blood Urea Nitrogen 17 mg/dL (7-17); Calcium 9.9 mg/dL (8.4-10.2); Carbon Dioxide 27 mmol/L (22-32); Chloride 98 mmol/L (98-107); Estimated Glomerular Filt Rate > 60.0 mL/min (>60); Glucose 92 mg/dL (70-100); HEMOLYSIS < 15 (0-50); Potassium 4.6 mmol/L (3.4-5.1); Sodium 135 mmol/L (137-145)
== END ==
PROVIDERS: PCP Family Medicine; Visit Provider Internal Medicine Endocrinology, Diabetes & Metabolism
DX: E87.6 Hypokalemia (principal); E27.49 Other adrenocortical insufficiency; C79.9 Secondary malignant neoplasm of unspecified site
CPT/HCPCS: 36415; 80048

== ENCOUNTER 2023-05-28 01:50 | Emergency (ER) | payer BC, SELFPAY ==
[2023-05-28 02:00] VITALS: BP 202/92; PULSE 100; RESP 18; TEMP 37.2; O2SAT 98; BMI 32.1
--- NOTE | 2023-05-28 02:25 | ED_ITS ---
HPI - Wound/Laceration General Chief Complaint: Wound/Laceration Stated Complaint: left foot cut Time Seen by Provider: 05/28/23 01:53 Source: patient Mode of arrival: Ambulatory History of Present Illness HPI narrative: 57-year-old woman with no significant medical history was taking a shower in her brand new remodeled bathroom and brand new shower with a shower door frame builder today when the shower door exploded. Temporary glass rained down on her she has some minor cuts on her arm left ankle and a 3 cm superficial laceration on the dorsum of the left foot. There is a moderate hematoma under the laceration but the bleeding has been controlled. Once cleaned there does not appear to be any deeper structure injuries. She is neurovascularly intact. Related Data Home Medications Medication Instructions Recorded Confirmed [PROBIOTIC] 1 cap PO QDAY ##0 09/04/17 cephalexin 500 mg capsule 2 cap PO BID ##0 09/04/17 hydrocortisone 5 mg tablet mg PO BID ##0 09/04/17 potassium chloride 20 mEq 20 meq PO QDAY ##0 09/04/17 tablet,extended release(part/cryst) (Klor-Con M) sulfamethoxazole 800 1 tab PO BID ##0 09/04/17 mg-trimethoprim 160 mg tablet Previous Rx's Medication Instructions Recorded doxycycline hyclate 100 mg capsule 100 mg PO Q12H #20 caps 09/04/17 Allergies Allergy/AdvReac Type Severity Reaction Status Date / Time bacitracin [From POLYSPORIN] Allergy Mild CONTACT Unverified 09/02/17 12:31 DERMATITIS polymyxin B [From POLYSPORIN] Allergy Mild CONTACT Unverified 09/02/17 12:31 DERMATITIS Review of Systems Review of Systems Narrative: Pertinent positive and negative findings as per HPI Patient History Medical History Melanoma Social History Smoking Status: Current some day smoker Smoking Status: Current some day smoker tobacco type: vaping alcohol intake frequency: 3 or more drinks per day Substance Use Type: does not use Exam Initial Vital Signs Initial Vital Signs: Vital Signs Temperature 98.9 F 05/28/23 02:00 Pulse Rate 100 H 05/28/23 02:00 Respiratory Rate 18 05/28/23 02:00 Blood Pressure 202/92 H 05/28/23 02:00 Pulse Oximetry 98 05/28/23 02:00 Oxygen Delivery Method Room Air 05/28/23 02:00 General: Alert appropriate in no acute distress Respiratory: Able to speak in full sentences, no obvious respiratory distress Skin: No obvious rashes, warm and dry Neurologic: Grossly intact no obvious asymmetries or abnormalities Psych: appropriate insight and affect, cooperative Extremity: She has a small scratch over the left lateral malleolus and a 3 cm laceration over the dorsum of the left foot with bleeding controlled. Procedures Laceration Repair Left foot: Time of procedure: Site: lower extremity Side (If applicable): left Size (cm): 3 Description: linear and clean Depth: simple, single layer Local Anesthetic: lidocaine 1% Amount of anesthesia used (mL): 4 Pre-repair: wound explored, irrigated extensively and deep structures intact Skin layer closed with: nylon Skin layer suture size: 4-0 Number of sutures: 3 Course Orders Ordered: Diphtheria/Tetanus/Acell Pertussis (Tet,Diph,Pertuss(Acell),Vac/Pf 0.5 Ml Syringe) 0.5 ml IM .ONCE ONE Stop: 05/28/23 02:25 Vital Signs Vital signs: Vital Signs - 8 hr 05/28/23 02:00 Temperature 98.9 F Pulse Rate 100 H Respiratory Rate 18 Blood Pressure 202/92 H Pulse Oximetry 98 Oxygen Delivery Method Room Air MDM - Wound/Laceration MDM Narrative Medical decision making narrative: CC: Laceration dorsum left foot Data collected from: patient Differential considered: Superficial laceration, deeper laceration, tendon and vascular involvement Exam documented above, pertinent findings include: 57-year-old woman with clean laceration dorsum of the left foot. No tendon involvement, underlying clot was evacuated. Closure is clean and uncomplicated Treatments: Laceration repair, Tdap given Discussion: 57-year-old woman with a cut to the top of her left foot. Sutured without difficulty. Reviewed anticipated course of recovery and signs and symptoms of infection. She does not meet any criteria for needing antibiotics at this time. Tdap is updated. Recommended that is stitches are out on or about June 07. Questions are answered and she is safe for discharge Discharge Plan Departure Patient Disposition: Home Clinical Impression: Laceration Instructions: DI for Laceration Repair Activity Restrictions/Additional Instructions: Thank you for coming into I am sorry that your shower door had to attack you :( The cut to your left foot should heal cleanly and easily. You will need the stitches removed on or about June 07. You can go to your primary care doctor, urgent care or return to the emergency department for this. We have updated your tetanus status today Using 400 mg of ibuprofen (2 [id number] pills) and 1 Tylenol every 6 hours can be very helpful in controlling pain. If you find that you are getting worse or develop any new symptoms, please feel free to return to the emergency department for further evaluation. Prescriptions: No Action sulfamethoxazole-trimethoprim 800 MG/160 MG tablet 1 tab PO BID Qty: 0 cephalexin 500 MG capsule 2 cap PO BID Qty: 0 hydrocortisone 5 MG tablet PO BID Qty: 0 potassium chloride [Klor-Con M20] 20 MEQ tablet,ER particles/crystals 20 meq PO QDAY Qty: 0 [PROBIOTIC] 1 cap PO QDAY Qty: 0 doxycycline hyclate 100 MG capsule 100 mg PO Q12H Qty: 20 0RF Referrals: Nohemi Craig DO [Primary Care Provider] - Stand Alone Forms: Patient Portal/API
[2023-05-28] MEDS: TET,DIPH,PERTUSS(ACELL),VAC/PF 0.5 ML SYRINGE IM (02:45)
[2023-05-28 02:47] VITALS: BP 144/72; PULSE 78; RESP 16; TEMP 36.6; O2SAT 98
== END 2023-05-28 02:48 | disposition home or self-care (01) ==
PROVIDERS: Emergency Provider Emergency Medicine; PCP Family Medicine
DX: S91.312A Laceration without foreign body, left foot, initial encounter (principal); W26.9XXA Contact with unspecified sharp object(s), initial encounter
CPT/HCPCS: 90471; 99283; 90715

== ENCOUNTER → 2024-09-06 08:15 | Outpatient (CLI) | payer BC, SELFPAY ==
--- NOTE | 2024-09-06 08:16 | DI.NM.S_ITS ---
PROCEDURE: NM EXERCISE TREADMILL NON NUC COMPARISON: None. INDICATIONS: PVC FINDINGS: Patient exercised per the standard [facility] protocol. Total exercise time was 6 minutes and 29 seconds. Test was terminated secondary to knee and ankle pain. Maximal heart rate obtained is 119 bpm which is 73% of maximal predicted heart rate. Maximum blood pressure was 160/[place] [address]. TOREY +7%. 6.5 METS. No ischemic changes noted. No arrhythmias present. No chest pains voiced. Blunted heart rate with normal blood pressure response to exercise. IMPRESSION: 1. Nondiagnostic exercise treadmill stress test for ischemia due to inability to reach target heart rate. 2. Mildly impaired exercise tolerance. 3. Findings are suggestive of chronotropic incompetency. Dictated by: Mike Dolan M.D. on 09/06/2024 at 16:47 Approved by: Mike Dolan M.D. on 09/06/2024 at 16:50
--- NOTE | 2024-09-06 08:16 | DI.ECHO.S_ITS ---
[facility]+ [facility] : : [address] : : [place] : : [id number] : : Phone: [phone] Echocardiogram Report + + :Name: ERICA FELDMAN Study Date: 09/06/2024 Height: 67 in : :[facility] ReadingLocation: Weight: 200 lb : : Gender: Female BSA: 2.0 m2 : :: 1965 Age: 58 yrs BP: 143/80 mmHg: :Reason For Study: PVC : :Ordering Physician: [id number], : :ISIS Performed By: Jenna Bowden : :Referring: ISIS SOTO : + + Interpretation Summary 1) Normal left ventricular thickness, size, wall motion, and systolic function (EF 60-65%). 2) Mildly enlarged right ventricle with normal function. 3) No significant valvular abnormalities. 4) No prior Echo available for comparison. Procedure: A two-dimensional transthoracic echocardiogram with color flow and Doppler was performed. The study quality was technically adequate. There is no prior echocardiogram noted for this patient. The patient had occasional PVCs during the exam. Left Ventricle: The left ventricle is normal in size and wall thickness. The ejection fraction is estimated to be 60-65%. Left ventricular systolic function appears normal without focal wall motion abnormalities. Diastolic parameters suggest a relaxation abnormality of the left ventricle, consistent with probable normal filling pressures. Right Ventricle: The right ventricle is mildly dilated. The right ventricular systolic function is normal. Atria: The left atrium is moderately dilated. The right atrium is mildly dilated. There is no Doppler evidence for an interatrial shunt. Mitral Valve: The mitral valve leaflets appear to open well. There is mild mitral regurgitation. Aortic Valve: The aortic valve is trileaflet. The aortic valve opens well. There is no aortic valve stenosis. No aortic regurgitation is present. Tricuspid Valve: The tricuspid valve leaflets are thin and pliable. There is mild tricuspid regurgitation. The right ventricular systolic pressure is estimated to be at least 32 mmHg based on an estimated right atrial pressure of 3 mm Hg. Pulmonic Valve: The pulmonic valve leaflets are thin and pliable; valve motion is normal. There is trace pulmonic regurgitation. Great Vessels: The aortic root is normal size. The dimensions of the ascending aorta are normal. The IVC is of normal diameter and collapses greater than 50% with a sniff. This suggests a low right atrial pressure of 3 mm Hg. Pericardium/ Pleura There is no pericardial effusion. There is no pleural effusion. MMode/2D Measurements & Calculations LVIDd: 5.3 cm LVOT diam: 2.0 cm LVIDs: 3.5 cm Ao root diam: 3.0 cm FS: 35.0 % asc Aorta Diam: 3.3 cm IVSd: 0.73 cm Ao Arch Diam (Prox Trans): 3.0 cm LVPWd: 0.72 cm LV ibarra. diameter/BSA (cm/m^2): 2.6 LV sys. diameter/BSA (cm/m^2): 1.7 LA A2 area: 23.4 cm2 RA long axis: 6.1 cm LA A4 area: 27.1 cm2 RA area: 24.3 cm2 LA length (vol): 6.3 cm RA vol: 82.5 ml LA vol: 85.9 ml RA : 40.8 ml/m2 LA vol index: 42.5 ml/m2 IVC diam: 1.7 cm RVD1 (basal): 4.3 cm RVD2 (mid): 3.9 cm TAPSE: 2.5 cm Doppler Measurements & Calculations Ao V2 max: 149.6 cm/sec LVOT Max Eleuterio: 123.7 cm/sec Ao V2 mean: 97.1 cm/sec LV V1 max P.1 mmHg Ao max P.9 mmHg LV V1 VTI: 28.1 cm Ao mean P.3 mmHg HARRY(I,D): 2.8 cm2 Ao V2 VTI: 31.7 cm HARRY(V,D): 2.6 cm2 sev ratio: 0.88 HARRY indexed to BSA (cm^2/m^2): 1.4 MV E max eleuterio: 76.8 cm/sec TR max eleuterio: 270.4 cm/sec MV A max eleuterio: 69.0 cm/sec TR max P.2 mmHg MV E/A: 1.1 PA V2 max: 109.8 cm/sec Med Peak E' Eleuterio: 9.0 cm/sec PA V2 mean: 76.3 cm/sec E/E' med: 8.6 PA mean P.6 mmHg Lat Peak E' Eleuterio: 13.5 cm/sec PA pr(Accel): 22.5 mmHg E/E' lat: 5.7 E/e' average: 7.1 MV dec time: 0.20 sec SV(LVOT): 88.2 ml Reading Physician:05:47 PM
== END ==
PROVIDERS: PCP Family Medicine; Referring Provider Internal Medicine Cardiovascular Disease; Visit Provider Internal Medicine Cardiovascular Disease
DX: I08.1 Rheumatic disorders of both mitral and tricuspid valves (principal); I49.3 Ventricular premature depolarization
CPT/HCPCS: 93017; 93306